=== PATIENT | female | born 1965 | race Caucasian/White ===

== ENCOUNTER 2017-04-25 16:18 | Emergency (ER) | payer OTHER ==
[2017-04-25] MEDS ORDERED: HYDROmorphone 1 MG/ML 1 ML SYRINGE IM STA ×2 (17:14→17:16)
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
[2017-04-25] MEDS ORDERED: ORPHENADRINE 30 MG/ML 2 ML VIAL IM STA (17:39)
[2017-04-25 18:01] VITALS: BP 109/66; PULSE 85; RESP 15; TEMP 98.1
== END 2017-04-25 18:00 | disposition home or self-care (01) ==
LOC: EC 16:18
DX: G89.29 Other chronic pain (principal); M54.5 Low back pain; F17.200 Nicotine dependence, unspecified, uncomplicated; V49.88XD Car occupant (driver) (passenger) injured in other specified transport accidents, subsequent encounter
CPT/HCPCS: 99283; 96372 ×2; J2360; J1170

== ENCOUNTER 2017-07-10 20:35 | Emergency (ER) | payer OTHER ==
[2017-07-10 21:00] VITALS: BP 113/71; PULSE 96; RESP 18; TEMP 97.3
[2017-07-10] MEDS ORDERED: HYDROmorphone 1 MG/ML 1 ML SYRINGE IM STA (21:15)
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
== END 2017-07-10 21:40 | disposition home or self-care (01) ==
LOC: EC 20:35
DX: G43.909 Migraine, unspecified, not intractable, without status migrainosus (principal); F17.200 Nicotine dependence, unspecified, uncomplicated
CPT/HCPCS: 99283; 96372; J1170

== ENCOUNTER → 2017-11-06 | Outpatient (CLI) | payer OTHER ==
[2017-11-06 20:59] LABS: Anti-DNA, DS unit <1.0 IU/mL; Cyclic Citrullinated Pep IgG NEGATIVE (NEGATIVE); DNA Double-Stranded NEGATIVE (NEGATIVE); RNP 0.2 AI; Scleroderma SC-70 Ab <0.2 AI
== END | disposition home or self-care (01) ==
LOC: LABWHC1 13:28
PROVIDERS: ATTEND Psychiatry & Neurology Pain Medicine
DX: M25.50 Pain in unspecified joint (principal)
CPT/HCPCS: 36415; 83516; 86038; 86200; 86225; 86235

== ENCOUNTER → 2018-07-04 | Outpatient (CLI) | payer OTHER ==
[2018-07-04 08:36] LABS: Basophils % (A) 1 %; Eosinophils # (A) 0.2 k/uL (0-0.7); Eosinophils % (A) 3 %; HCT 43.8 % (34.0-46.0); HGB 13.7 gm/dL (11.4-16.0); Lymphocytes % (A) 35 %; MCH 28.4 pg (25.0-35.0); MCHC 31.3 g/dL (31.0-37.0); MCV 90.7 fL (80.0-100.0); Mean Platelet Volume 7.4; Monocytes # (A) 0.3 k/uL (0-1.0); Monocytes % (A) 6 %; Neutrophils # (A) 3.2 k/uL (1.3-7.7); Neutrophils % (A) 55 %; Platelet Count 234 k/uL (150-450); RBC 4.82 m/uL (3.80-5.40); RDW 13.1 % (11.5-15.5); WBC 5.8 k/uL (3.8-10.6)
[2018-07-04 09:39] LABS: ALT 33 U/L (9-52); AST 18 U/L (14-36); Albumin 3.6 g/dL (3.5-5.0); Alkaline Phosphatase 62 U/L (38-126); Anion Gap 5 mmol/L; Blood Urea Nitrogen 15 mg/dL (7-17); Calcium 9.8 mg/dL (8.4-10.2); Carbon Dioxide 27 mmol/L (22-30); Chloride 112 mmol/L (98-107); Cholesterol 172 mg/dL (<200); Glucose 98 mg/dL (74-99); HDL Cholesterol 64 mg/dL (40-60); LDL Cholesterol,Calculated 89 mg/dL (0-99); Potassium 4.5 mmol/L (3.5-5.1); Sodium 144 mmol/L (137-145); Total Bilirubin 0.2 mg/dL (0.2-1.3); Total Protein 6.1 g/dL (6.3-8.2); Triglycerides 93 mg/dL (<150)
[2018-07-04 09:54] LABS: T4, Free (Free Thyroxine) 0.83 ng/dL (0.78-2.19)
[2018-07-04 15:46] LABS: DHEA Sulfate 36.2 ug/dL (26.0-430.0)
== END | disposition home or self-care (01) ==
LOC: LABWHC1 08:06
PROVIDERS: ATTEND Internal Medicine
DX: S06.9X9A Unspecified intracranial injury with loss of consciousness of unspecified duration, initial encounter (principal)
CPT/HCPCS: 36415; 80053; 80061; 82533; 82627; 82670; 84146; 84305; 84439; 84443; 84480; 85025

== ENCOUNTER → 2018-12-11 | Outpatient (CLI) | payer OTHER, MEDICARE ==
[2018-12-11 08:51] LABS: Basophils % (A) 1 %; Eosinophils % (A) 1 %; HCT 44.2 % (34.0-46.0); HGB 14.3 gm/dL (11.4-16.0); Lymphocytes # (A) 1.4 k/uL (1.0-4.8); Lymphocytes % (A) 28 %; MCH 29.2 pg (25.0-35.0); MCHC 32.3 g/dL (31.0-37.0); MCV 90.3 fL (80.0-100.0); Mean Platelet Volume 7.9; Monocytes # (A) 0.5 k/uL (0-1.0); Monocytes % (A) 9 %; Neutrophils % (A) 59 %; Platelet Count 216 k/uL (150-450); RBC 4.89 m/uL (3.80-5.40)
[2018-12-11 16:34] LABS: Vitamin D 25 Hydroxy 18.4 ng/mL (30.0-100.0)
[2018-12-11 16:40] LABS: Albumin/Globulin Ratio 2.22 (1.60-3.17); Anion Gap 6.3 mmol/L (4.00-12.00); Calcium 9.3 mg/dL (8.7-10.3); Carbon Dioxide 26.7 mmol/L (21.6-31.8); Globulin 1.8 g/dL (1.6-3.3); LDL Cholesterol,Calculated 86.8 mg/dL (0.0-131.0); Total Bilirubin 0.2 mg/dL (0.2-1.2); Total Protein 5.8 g/dL (6.2-8.2); VLDL Calculation 15.2 mg/dL (5.00-40.00)
[2018-12-11 16:48] LABS: T4, Free (Free Thyroxine) 0.9 ng/dL (0.80-1.80)
== END | disposition home or self-care (01) ==
LOC: LABWHC1 07:48
PROVIDERS: ATTEND Internal Medicine
DX: E23.0 Hypopituitarism (principal); E55.9 Vitamin D deficiency, unspecified; E53.8 Deficiency of other specified B group vitamins; S06.9X9A Unspecified intracranial injury with loss of consciousness of unspecified duration, initial encounter
CPT/HCPCS: 36415; 80053; 80061; 82306; 82533; 82607; 84305; 84439; 84443; 85025

== ENCOUNTER 2019-02-10 22:12 | Emergency (ER) | payer MEDICARE ==
[2019-02-10] MEDS ORDERED: MORPHINE SULFATE 4 MG/ML SYRINGE IM STA (23:24)
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
[2019-02-10 23:47] VITALS: BP 108/83; PULSE 85; RESP 16; TEMP 98.2
== END 2019-02-10 23:46 | disposition home or self-care (01) ==
LOC: EC 22:12
DX: G89.29 Other chronic pain (principal); M54.5 Low back pain; F41.9 Anxiety disorder, unspecified; F32.9 Major depressive disorder, single episode, unspecified; F17.200 Nicotine dependence, unspecified, uncomplicated; Z90.49 Acquired absence of other specified parts of digestive tract; Z98.890 Other specified postprocedural states; Z79.52 Long term (current) use of systemic steroids; Z79.899 Other long term (current) drug therapy
CPT/HCPCS: 99283; 96372; J2270

== ENCOUNTER → 2019-02-10 | Outpatient (CLI) | payer MEDICARE ==
--- NOTE | 2019-02-11 10:11 | MM ---
Reason for exam: screening (asymptomatic). Last mammogram was performed 2 years and 11 months ago. History: Patient is postmenopausal and has history of high-risk lesion on a previous biopsy at age 40. Family history of premenopausal breast cancer in maternal aunt at age 45, breast cancer in mother at age 74, and breast cancer in maternal aunt. High risk left mammotome panel of the left breast, December 25, 2005. Benign excisional biopsy of the left breast, 2005. Took hormonal contraceptives for 5 years beginning at age 28. Physical Findings: A clinical breast exam by your physician is recommended on an annual basis and results should be correlated with mammographic findings. MG 3D Screening Mammo W/Cad Bilateral CC and MLO view(s) were taken. Prior study comparison: March 03, 2016, left breast MG 3d work up w/cad LT. February 24, 2016, bilateral MG 3d screening mammo w/cad. The breast tissue is heterogeneously dense. This may lower the sensitivity of mammography. Stable benign calcifications in the right breast. There is chronic nodularity in the left breast. No significant changes when compared with prior studies. ASSESSMENT: Benign, BI-RAD 2 RECOMMENDATION: Routine screening mammogram of both breasts in 1 year.
== END | disposition home or self-care (01) ==
LOC: RADMAMWWP 08:14
PROVIDERS: ATTEND Internal Medicine
DX: Z12.31 Encounter for screening mammogram for malignant neoplasm of breast (principal)
CPT/HCPCS: 77063; 77067

== ENCOUNTER → 2019-03-26 | Outpatient (CLI) | payer MEDICARE ==
[2019-03-26 11:03] LABS: HCT 40.1 % (34.0-46.0); MCH 28.4 pg (25.0-35.0); MCHC 32.5 g/dL (31.0-37.0); MCV 87.4 fL (80.0-100.0); Mean Platelet Volume 7.6; Platelet Count 245 k/uL (150-450); RBC 4.59 m/uL (3.80-5.40); RDW 14.8 % (11.5-15.5); WBC 7.2 k/uL (3.8-10.6)
[2019-03-26 16:23] LABS: Albumin 4.1 g/dL (3.80-4.90); Albumin/Globulin Ratio 2.41 (1.60-3.17); Anion Gap 3.4 mmol/L (4.00-12.00); Calcium 9.3 mg/dL (8.7-10.3); Carbon Dioxide 28.6 mmol/L (21.6-31.8); Globulin 1.7 g/dL (1.6-3.3); LDL Cholesterol,Calculated 96.4 mg/dL (0.0-131.0); Total Bilirubin 0.3 mg/dL (0.2-1.2); Total Protein 5.8 g/dL (6.2-8.2); VLDL Calculation 14.6 mg/dL (5.00-40.00)
[2019-03-26 16:31] LABS: T4, Free (Free Thyroxine) 1.1 ng/dL (0.80-1.80)
== END | disposition home or self-care (01) ==
LOC: LABWHC1 09:11
PROVIDERS: ATTEND Internal Medicine
DX: E23.0 Hypopituitarism (principal); R53.83 Other fatigue; S06.9X9A Unspecified intracranial injury with loss of consciousness of unspecified duration, initial encounter
CPT/HCPCS: 36415; 80053; 80061; 82024; 82533; 84305; 84439; 84443; 85027

== ENCOUNTER → 2019-04-02 | Outpatient (CLI) | payer MEDICARE | END | disposition home or self-care (01) | LOC: LABWHC1 14:40 | PROVIDERS: ATTEND Internal Medicine | DX: S06.9X9A Unspecified intracranial injury with loss of consciousness of unspecified duration, initial encounter (principal) | CPT/HCPCS: 36415; 82306 ==

== ENCOUNTER → 2019-04-18 | Outpatient (CLI) | payer MEDICARE, OTHER ==
--- NOTE | 2019-04-18 15:45 | US ---
EXAMINATION TYPE: US kidneys/renal and bladder DATE OF EXAM: 04/18/2019 COMPARISON: None. CLINICAL HISTORY: 54-year-old female N28.9 Kidney Lesion, seen in left medial kidney per MRI (not don e at this facility). EXAM MEASUREMENTS: Right Kidney: 12.5 x 4.7 x 5.4 cm Left Kidney: 10.8 x 5.9 x 4.8 cm Right Kidney: No hydronephrosis. Left Kidney: somewhat limited vvisualization due to overlying bowel gas, with a 1.1 cm centrally loca ame parapelvic cyst. No hydronephrosis. Bladder: Two mural-based areas of soft tissue nodularity, larger along the posterior superior right b ladder wall measures 2.0 x 1.9 x 1.5 cm. Smaller mural based nodule is present along the inferior pos terior right bladder wall measuring 9 x 7 x 8 mm. Bilateral Jets seen: yes IMPRESSION: 1. No hydronephrosis. 2. Two suspicious mural based soft tissue nodules along the right posterior bladder wall measuring 2. 0 cm and 9 mm. Urothelial carcinoma not excluded at this time. Correlate with urine cytology and dire ct visualization as indicated.
== END | disposition home or self-care (01) ==
LOC: RADUSWWP 12:14
PROVIDERS: ATTEND Family Medicine
DX: R31.21 Asymptomatic microscopic hematuria (principal); N28.9 Disorder of kidney and ureter, unspecified
CPT/HCPCS: 76770

== ENCOUNTER → 2019-08-11 | Outpatient (CLI) | payer MEDICARE, OTHER ==
[2019-08-11 11:11] LABS: Basophils % (A) 1 %; Eosinophils # (A) 0.1 k/uL (0-0.7); Eosinophils % (A) 3 %; HCT 41.4 % (34.0-46.0); HGB 13.9 gm/dL (11.4-16.0); Lymphocytes # (A) 1.5 k/uL (1.0-4.8); Lymphocytes % (A) 35 %; MCH 29.6 pg (25.0-35.0); MCHC 33.6 g/dL (31.0-37.0); MCV 88.1 fL (80.0-100.0); Mean Platelet Volume 6.3; Monocytes # (A) 0.3 k/uL (0-1.0); Monocytes % (A) 6 %; Neutrophils # (A) 2.4 k/uL (1.3-7.7); Neutrophils % (A) 54 %; Platelet Count 286 k/uL (150-450); RDW 12.4 % (11.5-15.5); WBC 4.4 k/uL (3.8-10.6)
[2019-08-11 11:14] LABS: Appearance,Urine Clear (Clear); Bilirubin,Urine Negative (Negative); Blood,Urine Negative (Negative); Color,Urine Yellow; Glucose,Urine (UA) Negative (Negative); Ketones,Urine Negative (Negative); Leukocyte Esterase,Urine Trace (Negative); Mucus,Urine Occasional /hpf; Nitrite,Urine Negative (Negative); PH, Urine 5.5 (5.0-8.0); Protein,Urine Negative (Negative); RBC,Urine 5 /hpf (0-5); Urobilinogen,Urine <2.0 mg/dL (<2.0); WBC,Urine 2 /hpf (0-5)
[2019-08-11 16:19] LABS: Prolactin 5.5 ng/mL (2.8-29.2)
[2019-08-11 16:22] LABS: Vitamin D 25 Hydroxy 29.3 ng/mL (30.0-100.0)
[2019-08-11 16:42] LABS: African American GFR (CKD) 119.8 (60.0-200.0); Albumin 4.1 g/dL (3.80-4.90); Albumin/Globulin Ratio 2.41 (1.60-3.17); Anion Gap 7.4 mmol/L (4.00-12.00); Calcium 9.2 mg/dL (8.7-10.3); Carbon Dioxide 27.6 mmol/L (21.6-31.8); Chol/HDL Ratio 2.74; Globulin 1.7 g/dL (1.6-3.3); LDL Cholesterol,Calculated 112.6 mg/dL (0.0-131.0); Non-African American GFR(CKD) 103.3 (60.0-200.0); Total Bilirubin 0.4 mg/dL (0.2-1.2); Total Protein 5.8 g/dL (6.2-8.2); VLDL Calculation 12.4 mg/dL (5.00-40.00)
[2019-08-11 16:52] LABS: T4, Free (Free Thyroxine) 0.9 ng/dL (0.80-1.80)
[2019-08-11 21:21] LABS: ACTH 5.62 pg/mL (0.00-45.99)
== END | disposition home or self-care (01) ==
LOC: LABWHC1 10:10
PROVIDERS: ATTEND Psychiatry & Neurology Pain Medicine
DX: S06.9X9A Unspecified intracranial injury with loss of consciousness of unspecified duration, initial encounter (principal); E55.9 Vitamin D deficiency, unspecified; R41.82 Altered mental status, unspecified
CPT/HCPCS: 36415; 80053; 80061; 81001; 82024; 82306; 82533; 82607; 84146; 84305; 84439; 84443; 84481; 85025; 87086

== ENCOUNTER → 2020-03-11 | Outpatient (CLI) | payer MEDICARE, OTHER | END | disposition home or self-care (01) | LOC: LABWHC1 09:49 | PROVIDERS: ATTEND Internal Medicine | DX: S06.9X9A Unspecified intracranial injury with loss of consciousness of unspecified duration, initial encounter (principal) | CPT/HCPCS: 36415; 82533; 84305 ==

== ENCOUNTER 2020-06-16 23:24 | Emergency (ER) | payer MEDICARE, OTHER ==
[2020-06-16 23:30] VITALS: BP 137/85; PULSE 90; RESP 20; TEMP 98.2
--- NOTE | 2020-06-17 00:08 | XR ---
EXAMINATION TYPE: XR foot complete RT DATE OF EXAM: 06/17/2020 COMPARISON: NONE HISTORY: Foot pain TECHNIQUE: 3 views of the right foot were obtained FINDINGS: Metatarsals are intact. I see no fracture nor dislocation. Joint spaces are normal. There i s small Achilles calcaneal spur. IMPRESSION: Minimal calcaneal spurring. No fracture seen.
--- NOTE | 2020-06-17 00:11 | ED ---
Lower Extremity Injury HPI - General Chief Complaint: Extremity Injury, Lower Stated Complaint: Right foot injury Time Seen by Provider: 06/16/20 23:31 Source: patient Mode of arrival: ambulatory Limitations: no limitations - History of Present Illness Initial Comments: 55-year-old female presented for chief complaint of right 3 through 5 digit toe pain after dropping mirror on foot. Denies forefoot pain, bruising on plantar aspect, Denies ankle pain or fall. Denies head or neck trauma. Denies numbness tingling loss of sensation coolness or pallor of the extremity. No additional comments upon arrival patient appears well nontoxic no lacerations noted - Related Data Home Medications Medication Instructions Recorded Confirmed Dextroamphetamine/Amphetamine 10 mg PO DAILY@1500 02/10/19 02/10/19 [Adderall] Dextroamphetamine/Amphetamine 20 mg PO DAILY 02/10/19 02/10/19 [Adderall] Escitalopram Oxalate [Lexapro] 10 mg PO DAILY 02/10/19 02/10/19 Genotropin 0.2mg 0.2 mg SQ DAILY 02/10/19 02/10/19 HYDROcodone/APAP 10-325MG [[place] 1 tab PO DAILY PRN 02/10/19 02/10/19 10-325] Hydrocortisone [Cortef] 10 mg PO DAILY 02/10/19 02/10/19 Omeprazole 20 mg PO DAILY 02/10/19 02/10/19 Pramipexole Di-HCl [Mirapex] 0.5 mg PO HS 02/10/19 02/10/19 Topiramate [Topamax] 50 mg PO BID 02/10/19 02/10/19 Allergies Allergy/AdvReac Type Severity Reaction Status Date / Time morphine Allergy Abdominal Verified 06/16/20 23:30 Pain Review of Systems ROS Statement: Those systems with pertinent positive or pertinent negative responses have been documented in the HPI. ROS Other: All systems not noted in ROS Statement are negative. Past Medical History Additional Past Medical History / Comment(s): chronic back pain, migraines, bladder [place] History of Any Multi-Drug Resistant Organisms: None Reported Past Surgical History: Bladder Surgery, Cholecystectomy Additional Past Surgical History / Comment(s): surgery to left hip Past Psychological History: Anxiety, Depression Smoking Status: Current every day smoker Past Alcohol Use History: None Reported Past Drug Use History: None Reported General Exam - General Exam Comments Initial Comments: General: The patient is awake and alert, in no distress Eye: Pupils are equal, round and reactive to light, extra-ocular movements are intact. No nystagmus. There is normal conjunctiva bilaterally. No signs of icterus. Ears, nose, mouth and throat: There are moist mucous membranes and no oral lesions. Musculoskeletal: Swelling of digits 345 through his over digit #4 ,.Normal ROM of digits of right foot with pain, no limitations. Strength 5/5. Sensation intact. Radial and DP pulses equal bilaterally 2+. Neurological: A&O x 3. CN II-XII intact grossly, There are no obvious motor or sensory deficits. Coordination appears grossly intact. Speech is normal. Skin: Skin is warm and dry and no rashes or lesions are noted. Psychiatric: Cooperative, appropriate mood & affect, normal judgment. Limitations: no limitations Course Vital Signs 06/16/20 23:25 Temperature 98.2 F Pulse Rate 90 Respiratory 20 Rate Blood Pressure 137/85 O2 Sat by Pulse 98 Oximetry Medical Decision Making - Medical Decision Making No fractures no lacerations patient Norvasc intact. Patient be discharged with symptomatic treatment there is no pain over the forefoot or within the area of the [place] region no bruising the plantar aspect. Patient is to follow-up with primary care provider return parameters discussed patient discharged appearing well. Disposition Clinical Impression: Soft tissue injury, Foot pain, right Disposition: HOME SELF-CARE Condition: Good Instructions (If sedation given, give patient instructions): Foot Contusion (ED) Additional Instructions: Please use medication as discussed. Please follow-up with family doctor in the next 2 days. Please return to emergency room if the symptoms increase or worsen or for any other concerns. Is patient prescribed a controlled substance at d/c from ED?: No Referrals: Ken Vazquez MD [Primary Care Provider] - 1-2 days Time of Disposition: 00:11
== END 2020-06-17 00:23 | disposition home or self-care (01) ==
LOC: EC 23:24
DX: S99.821A Other specified injuries of right foot, initial encounter (principal); F32.9 Major depressive disorder, single episode, unspecified; G89.29 Other chronic pain; F41.9 Anxiety disorder, unspecified; M54.9 Dorsalgia, unspecified; G43.909 Migraine, unspecified, not intractable, without status migrainosus; F17.200 Nicotine dependence, unspecified, uncomplicated; Z79.899 Other long term (current) drug therapy; Z88.5 Allergy status to narcotic agent; Z85.51 Personal history of malignant neoplasm of bladder; W20.8XXA Other cause of strike by thrown, projected or falling object, initial encounter
CPT/HCPCS: 99283

== ENCOUNTER → 2020-09-02 | Outpatient (CLI) | payer MEDICARE, OTHER ==
[2020-09-02 11:43] LABS: Basophils % (A) 1 %; Eosinophils # (A) 0.2 k/uL (0-0.7); Eosinophils % (A) 3 %; HCT 46.8 % (34.0-46.0); Lymphocytes # (A) 1.7 k/uL (1.0-4.8); Lymphocytes % (A) 30 %; MCH 28.7 pg (25.0-35.0); MCHC 32.1 g/dL (31.0-37.0); MCV 89.3 fL (80.0-100.0); Mean Platelet Volume 8.3; Monocytes # (A) 0.3 k/uL (0-1.0); Monocytes % (A) 5 %; Neutrophils # (A) 3.4 k/uL (1.3-7.7); Neutrophils % (A) 60 %; Platelet Count 290 k/uL (150-450); RBC 5.24 m/uL (3.80-5.40); RDW 12.4 % (11.5-15.5); WBC 5.7 k/uL (3.8-10.6)
[2020-09-02 14:53] LABS: African American GFR (CKD) 118.9 (60.0-200.0); Albumin 4.3 g/dL (3.80-4.90); Albumin/Globulin Ratio 2.15 (1.60-3.17); Anion Gap 5.2 mmol/L (4.00-12.00); Calcium 9.7 mg/dL (8.7-10.3); Carbon Dioxide 28.8 mmol/L (21.6-31.8); Chol/HDL Ratio 2.96; LDL Cholesterol,Calculated 116.2 mg/dL (0.0-131.0); Non-African American GFR(CKD) 102.6 (60.0-200.0); Potassium 5.1 mmol/L (3.5-5.5); Total Bilirubin 0.3 mg/dL (0.3-1.2); Total Protein 6.3 g/dL (6.2-8.2); VLDL Calculation 16.8 mg/dL (5.00-40.00)
[2020-09-02 15:10] LABS: Prolactin 5.8 ng/mL (2.8-29.2)
== END | disposition home or self-care (01) ==
LOC: LABWHC1 09:18
PROVIDERS: ATTEND Internal Medicine
DX: S06.9X9A Unspecified intracranial injury with loss of consciousness of unspecified duration, initial encounter (principal)
CPT/HCPCS: 36415; 80053; 80061; 82024; 82533; 84146; 84305; 84439; 84443; 84481; 85025

== ENCOUNTER → 2020-12-23 | Outpatient (CLI) | payer MEDICARE, OTHER ==
--- NOTE | 2020-12-23 16:39 | CT ---
EXAMINATION TYPE: CT soft tissue neck w con DATE OF EXAM: 12/23/2020 COMPARISON: None HISTORY: 55-year-old female right maxillary arch abscess, pain TECHNIQUE: Contiguous axial scanning of the soft tissues of the neck performed with IV Contrast, julia ent injected with 100 mL of Isovue 300. Coronal/sagittal reconstructions performed. CT DLP: 517.7 mGycm Automated exposure control for dose reduction was used. FINDINGS: There is a 9 mm hypodense nodule posterior left lobe of thyroid gland. The submandibular glands are s atisfactory. Parotid glands are atrophic. Nasopharynx is clear. Punctate calcifications in the bilateral palatine tonsils suggesting sequela of prior infection. Mini mal lingual tonsillar thickening. Epiglottis and prevertebral soft tissues are satisfactory. There is asymmetric thickening of the left aryepiglottic fold which may be positional. Otherwise, glottic and subglottic structures as well as the tracheal column are clear. Mild to moderate underlying emphysema in the visualized upper lungs. Scattered nonenlarged cervical lymph nodes on both sides of the neck. Dental caries involving the left mandibular premolar. Patient is partially dentulous. There is a 6 mm lucency within the right paramedian maxilla which could represent a residual periapical lucency from prior periodontal disease, coronal image 13 and axial image 72. Ectatic proximal arch at 3.8 cm. Conventional arch vessel branching anatomy. Visualized intracranial structures, orbits and globes, and paranasal sinuses appear satisfactory. Lef tward nasal septal deviation. Bones: Mild degenerative disc disease C4-C5. IMPRESSION: 1. THE PATIENT IS PARTIALLY EDENTULOUS. THERE IS A 6 MM CYSTIC LUCENCY IN THE RIGHT PARAMEDIAN MAXILL A WHICH COULD REPRESENT A RESIDUAL PERIAPICAL LUCENCY/ABSCESS FROM PRIOR PERIODONTAL DISEASE. CLINICA LLY CORRELATE. 2. DENTAL KIM INVOLVING THE LEFT MANDIBULAR PREMOLAR. 3. ASYMMETRIC THICKENING OF THE LEFT ARYEPIGLOTTIC FOLD MAY POSITIONAL. DIRECT VISUALIZATION TO EXCLU DE A MUCOSAL LESION HERE. 4. COPD WITH MILD TO MODERATE EMPHYSEMA.
--- NOTE | 2020-12-23 16:48 | CT ---
EXAMINATION TYPE: CT sinus w con DATE OF EXAM: 12/23/2020 COMPARISON: None HISTORY: 55-year-old female right maxillary arch abscess CT DLP: 517.7 mGycm Automated exposure control for dose reduction was used. TECHNIQUE: Noncontrast axial views of the paranasal sinuses were obtained after administration of 100 mL Isovue 300 IV contrast. Coronal reconstructions performed. FINDINGS: PARANASAL SINUSES: There is trace mucosal thickening anterior right ethmoid air cells. The frontal, maxillary, and sphenoid sinuses are otherwise well pneumatized. There is no air-fluid level. Reactive carlos- osteogenesis is not seen. There is no destruction of the osseous childress of the paranasal sinuses. THE NASAL CAVITY: The osteomeatal complexes are patent. There is no erosion or destruction of the hard palate or abscess identified along the expected soft p alate. Upper dentures are in place. A 6 mm cystic lucency within the right paramedian maxilla describ ed further on the separate CT neck report. Leftward nasal septal deviation. The imaged brain, sella, skull base and orbits are normal in appearance. Mastoid air cells and middle ear cavities are well pneumatized. Incidental persistent origin of the left posterior cerebral artery. Reformatted images confirm above findings. IMPRESSION: Trace chronic paranasal sinus disease anterior right ethmoid air cells. Upper dentures are in place. No erosive change of the hard palate or abscess identified along the expected soft palate. Refer to a dditional findings on CT neck of the same day.
== END ==
LOC: RADCTMAIN 13:54
PROVIDERS: ATTEND Family Medicine
DX: J32.0 Chronic maxillary sinusitis (principal); J44.9 Chronic obstructive pulmonary disease, unspecified
CPT/HCPCS: 70491; 70487; Q9967

== ENCOUNTER → 2021-03-29 | Outpatient (CLI) | payer MEDICARE, OTHER | END | disposition home or self-care (01) | LOC: LABWHC1 09:45 | PROVIDERS: ATTEND Internal Medicine | DX: S06.9X9A Unspecified intracranial injury with loss of consciousness of unspecified duration, initial encounter (principal); X58.XXXA Exposure to other specified factors, initial encounter | CPT/HCPCS: 36415; 84305 ==

== ENCOUNTER → 2021-11-28 | Outpatient (CLI) | payer OTHER ==
[2021-11-28 18:58] LABS: Basophils # (A) 0.06 X 10*3/uL (0.00-0.10); Basophils % (A) 0.8 %; Eosinophils # (A) 0.12 X 10*3/uL (0.04-0.35); Eosinophils % (A) 1.7 %; HCT 44.6 % (37.2-46.3); HGB 14.6 g/dL (12.0-15.0); Immature Grans, Automated 0.3 %; Lymphocytes # (A) 2.03 X 10*3/uL (0.90-5.00); Lymphocytes % (A) 27.9 %; MCH 28.9 pg (27.0-32.0); MCHC 32.7 g/dL (32.0-37.0); MCV 88.1 fL (80.0-97.0); Mean Platelet Volume 10.6 fL (9.5-12.2); Monocytes # (A) 0.45 X 10*3/uL (0.20-1.00); Monocytes % (A) 6.2 %; NRBC Per 100 WBC 0 /100 WBCS (0.0-0.0); Neutrophils # (A) 4.59 X 10*3/uL (1.80-7.70); Neutrophils % (A) 63.1 %; Platelet Count 261 X 10*3/uL (140-440); RBC 5.06 X 10*6/uL (4.10-5.20); RDW 12.8 % (11.5-14.5); Reticulocyte % 0.91 % (0.10-1.80); WBC 7.27 X 10*3/uL (4.50-10.00)
[2021-11-28 19:26] LABS: Follicle Stimulating Hormone 48.9 mIU/mL; Luteinizing Hormone 38.1 mIU/mL
[2021-11-28 19:29] LABS: ALT 21 U/L (8-44); AST 19 U/L (13-35); African American GFR (CKD) 117.4 (60.0-200.0); Albumin 4.3 g/dL (3.8-4.9); Albumin/Globulin Ratio 1.58 (1.60-3.17); Alkaline Phosphatase 59 U/L (41-126); BUN/Creat Ratio 19.64 Ratio (12.00-20.00); Calcium 9.9 mg/dL (8.7-10.3); Carbon Dioxide 26.1 mmol/L (20.0-27.5); Chloride 102 mmol/L (96-109); Globulin 2.7 g/dL (1.6-3.3); Glucose 84 mg/dL (70-110); Iron 126 ug/dL (50-170); Non-African American GFR(CKD) 101.3 (60.0-200.0); Potassium 4.3 mmol/L (3.5-5.5); Sodium 141 mmol/L (135-145); Total Bilirubin <0.20 mg/dL (0.30-1.20); Total Iron Binding Capacity 420 ug/dL (228-460); Total Protein 7.1 g/dL (6.2-8.2)
[2021-11-28 19:48] LABS: C Reactive Protein <0.30 mg/dL (0.00-0.80)
[2021-11-29 14:07] LABS: Growth Hormone, Human 0.4 ng/mL (<10)
== END | disposition home or self-care (01) ==
LOC: LABWHC1 13:32
PROVIDERS: ATTEND Psychiatry & Neurology Pain Medicine
DX: E23.0 Hypopituitarism (principal); R53.82 Chronic fatigue, unspecified; R53.81 Other malaise
CPT/HCPCS: 36415; 80053; 82306; 82533; 82607; 82626; 82668; 82728; 83001; 83002; 83003; 83036; 83540; 83550; 84207; 84305; 84439; 84443; 84466; 84481; 85025; 85045; 86140

== ENCOUNTER → 2023-02-19 | Outpatient (CLI) | payer MEDICARE, OTHER ==
--- NOTE | 2023-02-19 11:34 | CT ---
EXAMINATION TYPE: CT urogram wo/w con CT DLP: 3369 mGycm, Automated exposure control for dose reduction was used. DATE OF EXAM: 02/19/2023 11:19 AM COMPARISON: Renal ultrasound 04/18/2019 CLINICAL INDICATION:Female, 58 years old with history of C67.0 bladder ca; PHH, Bladder Cancer TECHNIQUE: Urogram of the abdomen and pelvis before and after the uneventful administration of 100 cc of Isovue- 300 intravenously. Delayed imaging was performed. Coronal and sagittal reformats were performed. One or more CT dose reduction strategies were utilized during this examination. 2D and 3D reconstructions are performed to assist visualization of the urinary tract on a separate workstation. FINDINGS: GENITOURINARY: RIGHT KIDNEY AND URETER: No calculi. No hydronephrosis or hydroureter. No renal mass or other lesions . No urothelial lesions: no filling defect, dilation, stricture or wall thickening. LEFT KIDNEY AND URETER: No calculi. No hydronephrosis or hydroureter. No renal mass. Subcentimeter le ft mid kidney cyst. No urothelial lesions: no filling defect, dilation, stricture or wall thickening. URINARY BLADDER: Moderately well distended. Normal, no calculi, mass or other lesions. REPRODUCTIVE: Unremarkable. ABDOMEN LIVER: Scattered cysts with largest in the left hepatic lobe measuring up to 2.3 cm. GALLBLADDER AND BILE DUCTS: Post cholecystectomy changes. No biliary ductal dilatation. PANCREAS: Unremarkable. SPLEEN: Unremarkable. ADRENAL GLANDS: Unremarkable left adrenal gland. Hypodense right adrenal gland 2.1 cm nodule consiste nt with a benign lipid rich adenoma. STOMACH AND BOWEL: Unremarkable. No evidence of bowel obstruction. PERITONEUM: No evidence of pneumoperitoneum or free fluid. A few mildly prominent bilateral external iliac chain lymph nodes measuring less than 1 cm short axis. VASCULATURE: No aortic aneurysm. Multiple pelvic phleboliths. MUSCULOSKELETAL: No acute osseous abnormalities. There are 2 sclerotic foci within the left iliac bon e and left hemisacrum. Possibly benign bone islands. SOFT TISSUE/ABDOMINAL WALL: Unremarkable. LOWER CHEST: Lobulated 2.0 cm nodule within the left lower lobe (series 3, image 6). Additional right middle lobe 5 mm pulmonary nodule (series 3, image 7). IMPRESSION: 1. No evidence of urolithiasis or renal/urothelial neoplasm. No evidence for local recurrence. 2. Bilateral pulmonary nodules with largest in the left lower lobe measuring up to 2.3 cm. This raise s possibility of malignancy/metastasis. Dedicated CT chest exam is recommended. 3. Benign 2.1 cm lipid rich right adrenal adenoma.
== END | disposition home or self-care (01) ==
LOC: RADCTMAIN 09:04
PROVIDERS: ATTEND Urology
DX: C67.0 Malignant neoplasm of trigone of bladder (principal); D35.01 Benign neoplasm of right adrenal gland; R91.8 Other nonspecific abnormal finding of lung field
CPT/HCPCS: 74178; 74400; Q9967

== ENCOUNTER → 2023-03-01 | Outpatient (CLI) | payer MEDICARE, OTHER ==
--- NOTE | 2023-03-01 07:57 | CT ---
EXAMINATION TYPE: CT chest w con DATE OF EXAM: 03/01/2023 COMPARISON: CT urogram February 19, 2023 HISTORY: lung nodules, recent abnormal CT. CT DLP: 359.9 mGycm. Automated Exposure Control for Dose Reduction was Utilized. TECHNIQUE: CT scan of the thorax is performed following with IV Contrast, patient injected with 100 mL of Isovue 300. FINDINGS: LUNGS: Background mild to moderate underlying emphysematous change is present in the upper lungs. The re is persistent lobulated nodule or less likely nodular consolidation in the left lower lobe measuri ng 1.8 x 1.6 cm axial image 30. Focal mild scarring in the lingula on axial image 38. No pleural effu rita or pneumothorax seen bilaterally. There is 6 mm scarlike opacity peripheral right middle lobe ax ial image 33, spiculated nodule felt less likely. MEDIASTINUM: There are no greater than 1 cm hilar or mediastinal lymph nodes. No cardiomegaly or pe ricardial effusion is seen. Thoracic aortic aneurysm measures 4.2 cm at the coronal image 45 and 4.2 cm at level of main pulmonary artery axial image 22. Enlarged main pulmonary artery of 3.5 cm axial i mage 22 consistent with underlying pulmonary artery hypertension. OTHER: Incidental 2 bilateral renal arteries, normal variant. There are 2 thin-walled cyst in the lef t hepatic dome axial image 42. Cholecystectomy clips are present. Enlarged left axillary lymph node m easuring 1.5 x 1.2 cm axial image 4 requires follow-up. IMPRESSION: 1. Mild to moderate underlying emphysematous change with persistent suspicious 1.8 cm left lower lobe nodule or less likely nodular consolidation. Neoplasm needs to be considered. Advise PET CT follow-u p. 2. Thoracic aortic aneurysm up to 4.2 cm. 3. Enlarged left axillary lymph node. Follow-up advised. Recommend diagnostic left axillary ultrasoun d investigation and bilateral breast mammogram correlation if patient has not had recent mammogram.
== END | disposition home or self-care (01) ==
LOC: RADCTMAIN 07:08
PROVIDERS: ATTEND Family Medicine
DX: J43.9 Emphysema, unspecified (principal); I71.20 Thoracic aortic aneurysm, without rupture, unspecified; R91.8 Other nonspecific abnormal finding of lung field; R59.0 Localized enlarged lymph nodes
CPT/HCPCS: 71260; Q9967

== ENCOUNTER → 2023-03-07 | Outpatient (CLI) | payer MEDICARE, OTHER ==
--- NOTE | 2023-03-07 10:37 | MM ---
Reason for Exam: Clinical finding. Last mammogram was performed 4 year(s) and 1 month(s) ago. Patient History: Menarche at age 12. First Full-Term at age 19. Postmenopausal. Hormonal Contraceptives for 5 years from age 28 until age 33. 2005, Benign Excisional Biopsy on the left side. 12/25/2005, High risk Core Biopsy on the left side. Maternal aunt had breast cancer, age 45. Maternal aunt had breast cancer, age 50. Mother had breast cancer, age 74. Risk Values: Paige 5 year model risk: 3.7%. NCI Lifetime model risk: 20.0%. Tissue Density: The breast tissue is heterogeneously dense. This may lower the sensitivity of mammography. Findings: Analyzed By CAD. Asymmetry left breast laterally approximately 12.8 cm from nipple. Tubular structure partially 4.3 cm from nipple laterally. Not definitely seen on MLO view.. The posterior depth lesion laterally at 12.8 cm from the nipple as seen dating back to 2015.* Asymmetry left breast laterally approximately 12.8 cm from the nipple is seen dating back to 2015. * Tubular structure partially 4.3 cm from nipple laterally. Not definitely seen on MLO view. * Lymph nodes seen on prior CT not well appreciated. Overall Assessment: Incomplete: need additional imaging evaluation, BI-RAD 0 Management: Diagnostic Breast Ultrasound of the left breast. Imaging of the left breast with ultrasound on the lateral aspect. Results were given to the patient verbally at the time of exam. Patient should continue monthly self-breast exams. A clinical breast exam by your physician is recommended on an annual basis. This exam should not preclude additional follow-up of suspicious palpable abnormalities. Note on Paige scores and lifetime risk: 1. A Paige score greater than 3% is considered moderate risk. If this is the case, consider specialist referral to assess eligibility for a risk reducing agent. 2. If overall lifetime risk for the development of breast cancer is 20% or higher, the patient may qualify for future screening with alternating mammogram and breast MRI. Electronically signed and approved by: Rustam Capps DO
--- NOTE | 2023-03-07 10:38 | USB ---
Reason for Exam: Additional evaluation requested from abnormal screening. Patient History: Menarche at age 12. First Full-Term at age 19. Postmenopausal. Hormonal Contraceptives for 5 years from age 28 until age 33. 2005, Benign Excisional Biopsy on the left side. 12/25/2005, High risk Core Biopsy on the left side. Maternal aunt had breast cancer, age 45. Maternal aunt had breast cancer, age 50. Mother had breast cancer, age 74. Risk Values: Paige 5 year model risk: 3.7%. NCI Lifetime model risk: 20.0%. Technique: Method: Targeted. Prior Study Comparison: 02/24/2016 Bilateral Screening Mammogram, [facility]. 03/03/2016 Left Diagnostic Mammogram, [facility]. 02/10/2019 Bilateral Screening Mammogram, [facility]. Findings: The lateral section of the breast of the left breast, the axilla of the left breast and the retroareolar of the left breast were scanned. Imaged: Ultrasound imaging of: Lateral breast, the retroareolar region and axilla. * Indeterminate left axillary lymph node with somewhat diffuse thickening of the cortex measuring up to 5 mm. Fatty hilum is preserved. * There is suspected dilated duct at 3:00 3 cm from the nipple. No internal lesion definitively visualized. Overall Assessment: Probably benign, BI-RAD 3 Management: Diagnostic Breast Ultrasound of the left breast in 6 months. Follow-up ultrasound imaging of the lateral aspect of the left breast for dilated duct and indeterminate lymph node. A clinical breast exam by your physician is recommended on an annual basis and results should be correlated with mammographic findings. This exam should not preclude additional follow-up of suspicious palpable abnormalities. Results were given to the patient verbally at the time of exam. Electronically signed and approved by: Rustam Capps DO
== END | disposition home or self-care (01) ==
LOC: RADMAMWWP 09:27
PROVIDERS: ATTEND Family Medicine
DX: N63.32 Unspecified lump in axillary tail of the left breast (principal); N64.89 Other specified disorders of breast; R59.0 Localized enlarged lymph nodes; R92.2 Inconclusive mammogram; Z78.0 Asymptomatic menopausal state; Z80.3 Family history of malignant neoplasm of breast
CPT/HCPCS: 77066; 76642; G0279; 77062

== ENCOUNTER → 2023-03-29 | Day surgery (SDC) | payer MEDICARE, OTHER ==
[2023-03-28 09:09] VITALS: BMI 30.4
[~2023-03-29] MED LIST: CITRIC ACID-SODIUM CITRATE 15 ML CUP PO ONE; DEXAMETHASONE SOD PHOSPHATE 10 MG/ML 1 ML VIAL IVP ONE; FAMOTIDINE 20 MG/2 ML VIAL IVP ONE; GLYCOPYRROLATE 0.2 MG/ML 2 ML VIAL ONE; LACTATED RINGERS 1,000 ML IV ONE; LACTATED RINGERS 1,000 ML IV SCH; LIDOCAINE 1% (10MG/ML) FOR IV START INTRADERMA PRN; LIDOCAINE 2% INJ 20 MG/ML (2 ML VIAL) ONE; MIDAZOLAM 2 MG/2 ML VIAL ONE; NEOSTIGMINE 1 MG/ML 10 ML VIAL ONE; ONDANSETRON 4 MG/2 ML VIAL ONE; PHENYLEPHRINE-0.9% NACL SYG 1,000 MCG/10 ML SYRINGE ONE; PROPOFOL 10 MG/ML 20 ML VIAL IV ONE; ROCURONIUM 10 MG/ML (5 ML VIAL) IV ONE; SUCCINYLCHOLINE CHLORIDE 200 MG/10 ML VIAL IV ONE; WATER FOR INJECTION, STERILE 10 ML VIAL IV ONE; ePHEDrine 50 MG/ML 1 ML VIAL ONE; fentaNYL (PF) 50 MCG/ML 2 ML AMP ONE
--- NOTE | 2023-03-29 13:12 | CT ---
EXAMINATION TYPE: CT chest wo con CT DLP: 309.5 mGycm, Automated exposure control for dose reduction was used. DATE OF EXAM: 03/29/2023 12:59 PM COMPARISON: CT chest 03/01/2023, PET/CT 03/16/2023 CLINICAL INDICATION:Female, 58 years old with history of ion bronchoscopy; PHH, Pre ion navigation TECHNIQUE: Multiple axial images were obtained through the chest without IV contrast. Lack of IV or o ral contrast limits evaluation of solid and hollow organ viscera. . Coronal and sagittal reformats re viewed. Veran protocol utilized. FINDINGS: LUNGS/ PLEURA: Background mild to moderate underlying emphysematous changes redemonstrated. Persisten t lobulated nodule in the left lower lobe measuring 1.9 x 1.7 cm (series 4, image 167). Relatively s table in size. This does demonstrate FDG avidity on prior PET/CT. Linear scarring atelectasis within the lingula. No pleural effusion or pneumothorax. Peripheral scarlike 6 mm opacity versus nodular den sity in the right middle lobe redemonstrated (series 4, image 169). No new nodules. AIRWAY: Patent and unremarkable.. HEART: Size within normal limits. No pericardial effusion. MEDIASTINUM: No evidence of adenopathy. VASCULATURE: No aortic aneurysm. Ectasia of the ascending thoracic aorta measuring up to 3.9 cm. MUSCULOSKELETAL: No acute osseous abnormalities. No aggressive osseous lesions. SOFT TISSUES/LYMPH NODES: Stable left axillary lymph node measuring 1.6 x 1.1 cm. LOWER NECK: No significant findings. UPPER ABDOMEN: Stable left hepatic lobe cyst. Postcholecystectomy changes. Similar lobulated appearan ce of both kidneys. IMPRESSION: 1. Redemonstration of left lower lobe 1.9 x 1.7 cm lobulated nodule which was FDG avid on prior PET/C T again concerning for primary lung malignancy. 2. Stable indeterminate enlarged left axillary lymph node. Continued follow-up is recommended. 3. Ectasia of the ascending thoracic aorta measuring up to 3.9 cm.
[2023-03-29] MEDS: LACTATED RINGERS 1,000 ML IV SCH ×2 (13:30→14:29)
--- NOTE | 2023-03-29 15:50 | FL ---
Intraoperative/procedural fluoroscopic services were provided for bronchoscopy and left lower lobe bi opsy. Total fluoroscopy time is 4.09 minutes with a total of 1 submitted image to PACS. Total DAP 8.1 799 Gycm2. Please see the operative note for further details.
--- NOTE | 2023-03-29 15:57 | P.PCN ---
Date of Procedure: 03/29/23 Operative Findings: Operative Findings: Preoperative Diagnosis: left lower lobe mass Mediastinal lymphadenopathy Postoperative Diagnosis: Left lower lobe mass Mediastianal lymphadenopathy Procedure(s) Performed: Flexible bronchoscopy Robotic-assisted bronchoscopy and addition to radial ultrasound evaluation of the lung mass Robotic-assisted test monitor needle aspirate, transbronchial biopsies, transbronchial brushing of the left lower lobe mass in addition to a bronchioloalveolar lavage Endobronchial ultrasound Endobronchial ultrasound-guided transbronchial needle aspirate of station 4R, lymph nodes Anesthesia: JOSE MA Surgeon: Paulette Garcia Estimated Blood Loss (ml): 0 Pathology: other Condition: stable Disposition: same day Operative Findings: A physical exam was performed. Informed consent was obtained from the patient after explaining all the risks (pneumothorax, life threatening bleeding, infection and adverse effects due to medications), benefits and alternatives to the procedure which the patient appeared to understand and so stated. The patient was connected to the monitoring devices. General anesthesia was induced and the patient was intubated by anesthesia. A final timeout was performed and the procedure confirmed by the attending staff bronchoscopist. The bronchoscope was inserted and the airway examined. The flexible bronchoscope was removed and the robotic bronchoscope was inserted. Registration was completed. I next guided the robotic bronchoscope using the navigation system into the left lower lobe lateral segment segment. Once in proper position, the bronchoscope was frozen. The radial EBUS probe was placed through the bronchoscope and confirmed abnormal u/s images vs normal lung. A needle was placed through the working channel and under fluoroscopic guidance, we sampled the area thought to have the mass twice. We then used a cloud biopsy pattern with ultrasound confirmation for 2 additional passes with the needle. U/S evaluation was then used to reconfirm location. Forceps were next introduced through working channel and extended the appropriate distance and 3 transbronchial biopsies were performed using fluoroscopic guidance. The u/s probe was then reinserted to confirm location. When confirmed this process was repeated for a total of 6 transbronchial biopsies. After reassessment with EBUS, a brush was placed through the extendable working channel for 1 pass with fluoroscopic guidance. U/S evaluation was then used to confirm location. 40ml of saline was then instilled into the area of the lesion. The robotic bronchoscope was removed and the airway inspected with a flexible bronchoscope and 10 ml of effluent from the BAL was collected. The flexible bronchoscope was removed and the EBUS-TBNA bronchoscope was used to intubate the pateint through the ETT. An ultrasound examination identified all major landmarks was completed.. Previous evaluation of the mediastinal using the endobronchial ultrasound revealed a 11 x 7 mm station 4R lymph nodes, 5 x 6 [address] and 6 x 7 mm 10 L station lymph node. The EBUS-TBNA scope was used to evaluate station 4R lymph node. The lymph node was identified via ultrasound . The needle was then inserted and 3 passes were taken under direct ultrasonographic visualization. Each pass was maintained with good suction. A total of 3 passes. The patient was then extubated with the EBUS-TBNA bronchoscope and intubated with an Olympus IT bronchoscope without difficutly. The airways were inspected and cleared of secretions and blood. Fluoroscopic check for pneumothorax was negative upon completion of the procedure. There was 0 ml blood loss with the procedure. FINDINGS: 1.The airways appeared normal 2 Successful navigation, ultrasonographic identification, and biopsies of left lower lobe mass 3.The EBUS view was (Concentric/Eccentric)}. - Stations sampled: 4R - Stations not sampled due to small size: 4L and 10 L RECOMMENDATIONS: Await pathology and cytology results The referring physician will be alerted to the results when available. The patient was advised to follow up with the referring physician with the biopsy results Patient will be called with results.
[2023-03-29 16:11] VITALS: TEMP 97
--- NOTE | 2023-03-29 16:19 | XR ---
EXAMINATION TYPE: XR chest 1V DATE OF EXAM: 03/29/2023 4:12 PM COMPARISON: CT chest 03/29/2023 TECHNIQUE: XR chest 1V Frontal view of the chest. CLINICAL INDICATION:Female, 58 years old with history of post biopsy; FINDINGS: Lungs/Pleura: No pleural effusion or pneumothorax. Left lower lobe 1.6 cm nodular density with some t race surrounding opacity. Pulmonary vascularity: Unremarkable. Heart/mediastinum: Cardiomediastinal silhouette is unremarkable. Musculoskeletal: No acute osseous pathology. IMPRESSION: Status post left lower lobe nodular density biopsy with some trace surrounding airspace opacities lik santana representing atelectasis and/or hemorrhage. No pneumothorax.
[2023-03-29 17:04] VITALS: BP 113/71; PULSE 72; RESP 16
== END ==
LOC: ORWHC2ENDO 12:30
PROVIDERS: ATTEND Internal Medicine Critical Care Medicine
DX: C34.32 Malignant neoplasm of lower lobe, left bronchus or lung (principal); J98.4 Other disorders of lung; J44.9 Chronic obstructive pulmonary disease, unspecified; F17.210 Nicotine dependence, cigarettes, uncomplicated; F41.9 Anxiety disorder, unspecified; F32.A Depression, unspecified; G43.909 Migraine, unspecified, not intractable, without status migrainosus; K21.9 Gastro-esophageal reflux disease without esophagitis; F90.9 Attention-deficit hyperactivity disorder, unspecified type; Z85.51 Personal history of malignant neoplasm of bladder; Z79.51 Long term (current) use of inhaled steroids; Z79.899 Other long term (current) drug therapy; Z87.820 Personal history of traumatic brain injury
CPT/HCPCS: 31628; S2900; 31623; 31624; 31625; 31629; 31652; 31653; 71045; 71250; 87070; 87075; 87102; 87116; 87205; 87206; 87252; 87496; 87498; 87502; 87529; 87634; 87798; 88173; 88305; 88341; 88342

== ENCOUNTER → 2023-04-16 | Outpatient (CLI) | payer MEDICARE, OTHER ==
--- NOTE | 2023-04-16 11:18 | US ---
EXAMINATION TYPE: US thyroid st tissue head/neck DATE OF EXAM: 04/16/2023 COMPARISON: Pet/CT 03/16/2023. CLINICAL INDICATION: Female, 58 years old with history of C34.90 MALIGNANT NEOPLASM OF UNSP PART OF U NSP BRO; Patient states having lung cancer. Patient states having a scan that showed uptake in neck lymph nodes. No palpables. TECHNIQUE: Grayscale imaging of the neck. FINDINGS: Bilateral neck scanned with multiple images taken. Largest lymph node right neck short axis measurement = 0.8 cm and cortex = 3.8mm. Largest lymph node left neck short axis measurement = 0.9 cm and cortex = 3.3 mm. IMPRESSION: Bilateral nonenlarged lymph nodes identified. Some of these may correlate with prior PET/CT. Difficul t to correlate one for one given differences in modality in technique.
--- NOTE | 2023-04-17 07:52 | MR ---
EXAMINATION TYPE: MR brain wo/w con DATE OF EXAM: 04/16/2023 COMPARISON: Prior MRI 2018 is unavailable for comparison at this location. HISTORY: Lung cancer CONTRAST: Performed utilizing 9 mL intravenous Gadavist gadolinium contrast. TECHNIQUE: Multiplanar, multiecho imaging on a 3.0 [place] magnet is performed through the brain. Stud y is performed within 24 hours of arrival to the hospital. The craniovertebral junction is normal. The pituitary is normal. Diffusion-weighted imaging is performed. No abnormal hyperintensity is present to suggest an acute i ntracranial infarct or acute ischemic change. There are scattered deep white matter changes (nonspecific. Differential diagnosis could include, but not limited to, chronic microvascular ischemic change, multiple sclerosis, migraine headaches, Lyme disease. No abnormal enhancement is evident. Ventricles and sulci are appropriate for the patient age. IMPRESSIONS: 1. Scattered periventricular and deep white matter punctate changes, most likely on the basis of ct technologist anne marie white matter ischemic change. 2. No suspicious changes for metastatic disease.
--- NOTE | 2023-04-17 12:28 | CA ---
Exercise Stress Test Report Name: Zoey Beltran Exam Date: 04/16/2023 11:22 Exam Location: [facility] Stress Ht (in): 68 Wt (lb): 200 BSA: 2.04 Ordering Phys: Damir Faye MD Referring Phys: Damir Faye MD Technologist: Isaac Mcdaniel Age: 58 Gender: F : 1965 Procedure CPT: Indications: C34.90 ICD-10 Codes: Patient History: DIFFICULTY IN BREATHING, FAMILY HX OF HEART DISEASE, CURRENT SMOKER 0.5 PPD X 38 YEARS, EMPHYSEMA Medications: NORCO,,,,,, ADDERALL,,,,,, TOPAMAX,,,,, Meds past 24 hrs: Pretest Chest Pain: STRESS TEST Vimal Protocol Exercise Duration (min:sec): 09:[address] Depressions (mm): Angina Score: Fairchild Score: Resting HR (bpm): 81 Peak HR (bpm): 135 Resting BP (mmHg): 129 / 92 Peak BP (mmHg): 186 / 140 MPHR: 162 Target HR: 138 % MPHR: 83 METS: 11.5 Total Dose: Peak Dose: Atropine: Double Product: 46933 BP Response: Stress Termination: MAX EXERTION,Fatigue Stress Symptoms: FATIGUE - PT COULDN'T REACH TARGET DUE TO FATIGUE/DIFFICULTY IN BREATHING Stress Summary: ECG ANALYSIS Resting ECG: Stress ECG: CONCLUSIONS Baseline EKG revealed normal sinus rhythm with poor R-wave progression over the precordial leads. Patient walked on a standard Vimal protocol for a total duration of 9 minutes 56 seconds and maximum heart rate was 135 bpm which is slightly less than 85% of predicted maximal. Patient delivered fatigue and shortness of breath there was no arrhythmia. EKG did not reveal any ST segment changes to indicate ischemia. Suboptimal heart rate response but at 83% of predicted maximum heart rate patient did not have angina there was no ischemia by EKG criteria. Dr. Nicola Guevara MD (Electronically Signed) Final Date: 17 April 2023 12:27
== END | disposition home or self-care (01) ==
LOC: RADUSWWP 09:59
PROVIDERS: ATTEND Thoracic Surgery (Cardiothoracic Vascular Surgery)
DX: C34.32 Malignant neoplasm of lower lobe, left bronchus or lung (principal); R59.0 Localized enlarged lymph nodes; R90.82 White matter disease, unspecified
CPT/HCPCS: 93017; 76536; 70553; A9585

== ENCOUNTER → 2023-07-10 | Outpatient (CLI) | payer MEDICARE, OTHER ==
--- NOTE | 2023-07-10 15:01 | XR ---
EXAMINATION TYPE: XR chest 2V DATE OF EXAM: 07/10/2023 COMPARISON: 03/29/2023 TECHNIQUE: PA and lateral views submitted. HISTORY: Left chest wall mass FINDINGS: Left lower lobe consolidation and small effusion. Atherosclerotic change aorta. Hypertrophic degenera tive changes in the spine. No pneumothorax or overt failure. Surgical clips right upper quadrant. IMPRESSION: 1. Left lower lobe infiltrate and small effusion.
== END | disposition home or self-care (01) ==
LOC: RADXRMAIN 13:29
PROVIDERS: ATTEND Family Medicine
DX: R91.1 Solitary pulmonary nodule (principal); J90 Pleural effusion, not elsewhere classified; R91.8 Other nonspecific abnormal finding of lung field
CPT/HCPCS: 71046

== ENCOUNTER → 2024-07-22 | Outpatient (CLI) | payer MEDICARE, OTHER ==
--- NOTE | 2024-07-22 10:11 | MM ---
Reason for Exam: Additional evaluation requested from prior study. Last mammogram was performed 1 year(s) and 5 month(s) ago. Patient History: Menarche at age 12. First Full-Term at age 19. Postmenopausal. Hormonal Contraceptives for 5 years from age 28 until age 33. 2005, Benign Excisional Biopsy on the left side. 12/25/2005, High risk Core Biopsy on the left side. Maternal aunt had breast cancer, age 45. Maternal aunt had breast cancer, age 50. Mother had breast cancer, age 74. Risk Values: Paige 5 year model risk: 3.9%. NCI Lifetime model risk: 19.6%. Prior Study Comparison: 03/03/2016 Left Diagnostic Mammogram, [facility]. 02/10/2019 Bilateral Screening Mammogram, [facility]. 03/07/2023 Bilateral MG 3D diag mammo w/cad [facility] ROSA, [facility]. Tissue Density: The breasts are heterogeneously dense, which may obscure small masses. Findings: Analyzed By CAD. Stable chronic nodularity left breast. No new nodules or masses seen. No suspicious calcifications. Ultrasound of the left axilla is recommended at the site of patient's clinical concern. Overall Assessment: Incomplete: need additional imaging evaluation, BI-RAD 0 Management: Diagnostic Breast Ultrasound of the right breast. . Results were given to the patient verbally at the time of exam. Patient should continue monthly self-breast exams. A clinical breast exam by your physician is recommended on an annual basis. This exam should not preclude additional follow-up of suspicious palpable abnormalities. Note on Paige scores and lifetime risk: 1. A Paige score greater than 3% is considered moderate risk. If this is the case, consider specialist referral to assess eligibility for a risk reducing agent. 2. If overall lifetime risk for the development of breast cancer is 20% or higher, the patient may qualify for future screening with alternating mammogram and breast MRI. [facility], , 07/22/2024 10:04 AM. Electronically signed and approved by: iSmón Solis M.D. Radiologis
--- NOTE | 2024-07-22 10:34 | USB ---
Reason for Exam: Follow-up at short interval from prior study. Patient History: Menarche at age 12. First Full-Term at age 19. Postmenopausal. Hormonal Contraceptives for 5 years from age 28 until age 33. 2005, Benign Excisional Biopsy on the left side. 12/25/2005, High risk Core Biopsy on the left side. Maternal aunt had breast cancer, age 45. Maternal aunt had breast cancer, age 50. Mother had breast cancer, age 74. Risk Values: Paige 5 year model risk: 3.9%. NCI Lifetime model risk: 19.6%. Technique: Method: Targeted. Prior Study Comparison: 03/03/2016 Left Diagnostic Mammogram, [facility]. 02/10/2019 Bilateral Screening Mammogram, [facility]. 03/07/2023 Bilateral MG 3D diag mammo w/cad ALMA ROSA, [facility]. Findings: The axilla of the left breast was scanned. Ultrasound of the left axilla redemonstrates left axillary lymph node the improved cortical thickening. Lymph node measures 1.9 cm in length with cortical thickening of 3 mm versus nearly 5 mm previously. This lymph node is considered benign. Overall Assessment: Benign, BI-RAD 2 Management: Screening Mammogram of both breasts in 1 year. A clinical breast exam by your physician is recommended on an annual basis and results should be correlated with mammographic findings. This exam should not preclude additional follow-up of suspicious palpable abnormalities. Results were given to the patient verbally at the time of exam. [facility], , 07/22/2024 10:26 AM. Electronically signed and approved by: Simón Solis M.D. Radiologis
== END | disposition home or self-care (01) ==
LOC: RADMAMWWP 09:39
PROVIDERS: ATTEND Family Medicine
CPT/HCPCS: 77062; 77066